=== PATIENT | female | born 1955 | race Caucasian/White ===

== ENCOUNTER 2022-08-03 11:12 | Outpatient (CLI) | payer OTHER ==
--- NOTE | 2022-08-03 14:13 | XRAY Report ---
PROCEDURE: Thoracic Spine 2 View INDICATIONS: THORACIC/LUMBAR PAIN TECHNIQUE: 2 views of the thoracic spine were acquired. COMPARISON: None. FINDINGS: Bones: No fractures or dislocations. No suspicious bony lesions. 12 pairs of ribs are noted, and a ppear intact where visualized. Soft tissues: No paravertebral stripe thickening. IMPRESSION: No evidence of acute bony abnormality of the thoracic spine. Reviewed by: Keo Richey MD on 08/03/2022 2:12 PM PST Approved by: Keo Richey MD on 08/03/2022 2:12 PM PST Station ID: [id number]
--- NOTE | 2022-08-03 14:18 | XRAY Report ---
PROCEDURE: Lumbar Spine 2 View INDICATIONS: THORACIC PAIN, LUMBAR PAIN TECHNIQUE: 3 views of the lumbar spine were acquired. COMPARISON: None. FINDINGS: Bones: 5 [id number] vertebrae are present. There is normal bony alignment. No vertebral body compression fractures. No suspicious bony lesions. Mild lower lumbar facet arthropathy. Soft tissues: Overlying bowel gas pattern is normal. No suspicious soft tissue calcifications. IMPRESSION: Mild lower lumbar facet arthropathy. No evidence acute bony abnormality of the lumbar spi ne. Reviewed by: Keo Richey MD on 08/03/2022 2:17 PM PST Approved by: Keo Richey MD on 08/03/2022 2:17 PM PST Station ID: [id number]
== END 2022-08-03 11:13 | disposition home or self-care (01) ==
LOC: DI 11:12
PROVIDERS: ATTEND Physician Assistant
DX: M47.816 Spondylosis without myelopathy or radiculopathy, lumbar region (principal)

== ENCOUNTER 2022-08-15 13:22 | Outpatient (CLI) | payer OTHER ==
--- NOTE | 2022-08-16 09:16 | Mammography Report ---
BILATERAL DIGITAL SCREENING MAMMOGRAM 3D/2D: 08/15/2022 CLINICAL: Routine screening. No prior exams were available for comparison. Both breasts are extremely dense, which lowers the sensitivity of mammography (category d />75% gland ular tissue). There is a possible irregular equal density asymmetry in the left breast middle depth medial region s een on the craniocaudal view only. No other significant masses, calcifications, or other findings are seen in either breast. IMPRESSION: INCOMPLETE: NEEDS ADDITIONAL IMAGING EVALUATION The possible irregular equal density asymmetry in the left breast resembles fibroglandular tissue and is indeterminate. Additional views with possible ultrasound are recommended. Based on the Tyrer Cuzick model (a risk assessment model) the patients lifetime risk is 18.1% and he r 10 year risk is 9.0%. According to the ACR, ACS, and NCCN guidelines, an annual breast MRI exam senait ng with mammogram is recommended if the patients lifetime risk is 20% or greater. This exam was interpreted at Station ID: [id number]. NOTE: For mammograms, a report in lay terms will be sent to the patient. Approximately 15% of breast malignancies will not be visualized mammographically. In the management of a palpable breast mass, a negative mammogram must not discourage biopsy of a clinically suspicious lesion. Electronically Signed By: Trey connell/ekaterina:08/15/2022 16:17:16 ACR BI-RADS Category 0: Incomplete 3340F PARENCHYMAL PATTERN: (VD) - The breast(s) demonstrate(s) extremely dense parenchyma, limiting the sen sitivity of mammography. BI-RADS CATEGORY: (0) - 0 Mammo and [place] [id number] Immediate follow-up LATERALITY: (L)
== END 2022-08-15 13:23 | disposition home or self-care (01) ==
LOC: DI 13:22
PROVIDERS: ATTEND Physician Assistant
DX: Z12.31 Encounter for screening mammogram for malignant neoplasm of breast (principal); R92.8 Other abnormal and inconclusive findings on diagnostic imaging of breast

== ENCOUNTER 2022-08-15 13:24 | Outpatient (CLI) | payer OTHER ==
--- NOTE | 2022-08-15 14:59 | DEXA Report ---
PROCEDURE: Dexa Spine and/or Hip INDICATIONS: POST MENOPAUSAL TECHNIQUE: Dual energy x-ray absorptiometry (DXA) was performed on a [employer] Control System. Regions measur ed are the AP Spine, femoral neck, and if needed forearm. COMPARISON: None. FINDINGS: Lumbar Spine: Bone Mineral Density 1.15 g/cm/cm,T score -0.3, Left Femoral Neck: Bone Mineral Density 0.81 g/cm/cm, T score -1.7, Left Hip: Bone Mineral Density 0.85 g/cm/cm,T score -1.3, (T score greater or equal to -1.0: NORMAL) (T score from -1.1 to -2.4: OSTEOPENIA) (T score less than or equal to -2.5 to: OSTEOPOROSIS) Impression: Osteopenia of the left femoral neck and left hip. Increased fracture risk. Patients with diagnosis of osteoporosis or osteopenia should have regular bone mineral density assess ment. For those eligible for Medicare, routine testing is allowed once every 2 years. Testing frequ ency can be increased for patients who have rapidly progressing disease or for those who are receivin g medical therapy to restore bone mass. Reviewed by: Derick Woodard MD on 08/15/2022 2:58 PM PDT Approved by: Derick Woodard MD on 08/15/2022 2:58 PM PDT Station ID: [id number]
== END 2022-08-15 13:25 | disposition home or self-care (01) ==
LOC: DI 13:24
PROVIDERS: ATTEND Physician Assistant
DX: M85.89 Other specified disorders of bone density and structure, multiple sites (principal); Z78.0 Asymptomatic menopausal state

== ENCOUNTER 2022-09-13 12:34 | Outpatient (CLI) | payer OTHER ==
--- NOTE | 2022-09-14 10:54 | Ultrasound Report ---
LIMITED ULTRASOUND OF LEFT BREAST: 09/13/2022 CLINICAL: Patient returns today to evaluate a focal asymmetry in the left breast. Comparison is made to exams dated: 09/13/2022 mammogram and 08/15/2022 mammogram - [facility]. Color flow and real-time ultrasound of the left breast 9-10 o'clock region were performed. Vargas scal e images of the real-time examination were reviewed. No significant abnormalities were seen sonographically in the left breast in the region of possible a symmetry. IMPRESSION: NEGATIVE There is no sonographic evidence of malignancy. A 1 year screening mammogram is recommended. Exam findings were conveyed to the patient. This exam was interpreted at Station ID: [id number]. Electronically Signed By: Flakito Gibson M.D. slc/:09/13/2022 13:19:46 Ultrasound BI-RADS: 1 Negative BI-RADS CATEGORY: (1) - 1 Mammogram [id number] 1 year screening LATERALITY: (B)
--- NOTE | 2022-09-14 10:54 | Mammography Report ---
UNILATERAL LEFT DIGITAL DIAGNOSTIC MAMMOGRAM 3D/2D: 09/13/2022 CLINICAL: Patient returns today to evaluate an asymmetry in the left breast. Comparison is made to exam dated: 08/15/2022 mammogram - [facility]. The left breast is extremely dense, which lowers the sensitivity of mammography (category d />75% gla ndular tissue). There is a possible asymmetry in the left breast middle depth medial region seen on the craniocaudal view only. No other significant masses or calcifications are seen in the breast. IMPRESSION: INCOMPLETE: NEEDS ADDITIONAL IMAGING EVALUATION The possible asymmetry in the left breast is indeterminate. A targeted ultrasound is recommended and will immediately follow. Based on the Tyrer Cuzick model (a risk assessment model) the patients lifetime risk is 18.1% and he r 10 year risk is 9.0%. According to the ACR, ACS, and NCCN guidelines, an annual breast MRI exam senait ng with mammogram is recommended if the patients lifetime risk is 20% or greater. This exam was interpreted at Station ID: [id number]. NOTE: For mammograms, a report in lay terms will be sent to the patient. Approximately 15% of breast malignancies will not be visualized mammographically. In the management of a palpable breast mass, a negative mammogram must not discourage biopsy of a clinically suspicious lesion. Electronically Signed By: Flakito Gibson M.D. slc/:09/13/2022 12:56:10 ACR BI-RADS Category 0: Incomplete 3340F PARENCHYMAL PATTERN: (VD) - The breast(s) demonstrate(s) extremely dense parenchyma, limiting the sen sitivity of mammography. BI-RADS CATEGORY: (0) - 0 Ultrasound [id number] Immediate follow-up LATERALITY: (B)
== END 2022-09-13 12:35 | disposition home or self-care (01) ==
LOC: DI 12:34
PROVIDERS: ATTEND Physician Assistant
DX: R92.8 Other abnormal and inconclusive findings on diagnostic imaging of breast (principal)